=== PATIENT | female | born 2005 | race African-American/Black ===

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

== ENCOUNTER 2025-02-09 14:06 | Emergency (ER) | payer OTHER, SELFPAY ==
--- NOTE | 2025-02-09 14:07 | ED_ITS ---
HPI - URI/Sore Throat General Chief Complaint: Skin/Abscess/Foreign Body Stated Complaint: Sinus Time Seen by Provider: 02/09/25 14:06 Source: patient Mode of arrival: ambulatory Limitations: no limitations History of Present Illness HPI Narrative: Patient is a 19-year-old female who presents with 5 days of sinus congestion, cough, sore throat, ear pain, swollen lymph nodes, body aches and headaches. Denies any fever, chills, nausea, vomiting, diarrhea. Has not taken anything for symptoms. Patient also having more swelling to left labia for 2-3 months. Patient has not followed up with OBGYN. Patient states it is not painful and has not had any drainage Related Data Allergies Allergy/AdvReac Type Severity Reaction Status Date / Time No Known Allergies Allergy Verified 12/12/24 17:04 Review of Systems 2 Review of Systems: All systems reviewed & are unremarkable except as noted in HPI and below Constitutional: Constitutional: Denies chills, Denies fatigue, Denies fever(s), Reports headache(s), Denies malaise and Denies weakness Eyes: Eyes: Denies blurry vision, Denies itchy eyes and Denies loss of vision ENT: Reports otalgia, Denies headache(s), Reports nasal congestion, Denies sinus pain, Reports sinus pressure and Reports sore throat Cardiovascular: Cardiovascular: Denies chest pain, Denies irregular heart rhythm and Denies dyspnea Respiratory: Respiratory: Reports cough and Denies dyspnea Gastrointestinal: Gastrointestinal: Denies abdominal pain, Denies diarrhea, Denies nausea and Denies vomiting Genitourinary: Genitourinary: Reports other (labia swelling) Musculoskeletal: Musculoskeletal: Denies back pain, Reports myalgias and Denies arthralgias Integumentary/Breasts: Skin/Breast: Denies pruritus and Denies rash Neurologic: Denies headache(s), Denies loss of vision and Denies weakness Psychiatric: Psychiatric: Reports no additional psychiatric complaints Endocrine: Endocrine: Denies fatigue Allergic/Immunologic: Allergic/Immunologic: Denies itchy eyes PMFSH Comments At time of signature, agree with nursing past medical, surgical, social and family history. There is no relevant family history pertinent to the presenting complaint. Exam 2 Const: General: cooperative, healthy appearing, comfortable, no acute distress and well nourished Nutritional Appearance: well nourished O rientation/consciousness: patient oriented x3 Limitations: no limitations HENMT: Head: normal to inspection, normocephalic and atraumatic Ears: h earing grossly normal bilaterally, external ears normal, TM's normal bilaterally, EAC's normal and no periauricular adenopathy Face/Nose/Sinus: N ormal external nose present, Abnormal mucous membranes and turbinates present erythematous bilateral and diffuse, normal facial exam, sinuses nontender and face symmetric Face and sinus: normal facial exam, sinuses nontender and face symmetric Mouth: Yes Normal oral and palatal mucosa present, Yes lip normal, Yes tongue normal, Yes Normal salivary glands and ducts present, Yes oropharynx normal and Yes moist mucous membranes Teeth and gingiva: dentition normal Throat: uvula midline, abnormal tonsil bilateral erythema, exudates and hypertrophy 3+ and posterior oropharynx abnormal erythema Eyes: General: appearance normal, both eyes and all related structures A lignment and Position: alignment normal and position normal Periorbital: p eriorbital findings normal Eyelids: eyelids normal Pupils: Equal, round and reactive pupils present Neck: Neck: normal visual inspection, full ROM, no lymphadenopathy and supple Chest: Chest palpation & inspection: normal inspection of the chest and normal palpation of entire chest wall Resp: Effort & Inspection: normal respiratory effort and able to speak in complete sentences Auscultation: clear to auscultation bilaterally, no crackles, no rales, no rhonchi and no wheezes Cardio: Rate: regular rate Rhythm: regular rhythm Heart sounds: S1 normal heart sound present and S2 normal heart sound present GI: Inspection: normal to inspection : External Female Exam: external swelling (Left labia majora) OB/external & speculum: Deferred OB/external & speculum exam Female genitals images: 1. 2 cm fluid filled this cyst appearing mass. nontender, no erythema, warmth or drainage Skin: General skin exam: normal color and no rashes or lesions noted Neuro: General: patient oriented x3 and moves all extremities Cranial nerves: Yes Equal, round and reactive pupils present Speech: normal speech Gait exam (Neuro): Normal gait present Extrem: General: normal to inspection, full ROM and no edema Psych: Appearance: grossly normal and well kempt Mental Status: mental status grossly normal Speech and movement: Normal speech and movement present Affect: normal affect Attitude: cooperative Thought process: Normal thought process present Course Course Emergency Course: Discharge instructions reviewed with patient, as well as provided in writing per nursing staff. The instructions also include specific and strict return/GO TO THE ER as well as f/u information. All questions have been answered, and the patient deny any further questions with discharge and discharge plan. Portions of this record may have been created with voice recognition software Level of Care: Express Care Visit Vital Signs Vital signs: Reviewed MDM - URI/Sore Throat MDM Narrative Medical decision making narrative: Pt well hydrated appearing, in no respiratory distress, hemodynamically stable. Recommend supportive care. The patient is stable at time of discharge the clinical impression was discussed and the patient was given the opportunity to ask questions, which were addressed as completely as possible given the information available at present. Anticipatory guidance and return to care precautions were discussed and the importance of primary care follow-up was stressed and encouraged. The patient voiced understanding of the plan, indications to return, and the need for follow-up. Exam findings show no acute concerns or changes Patient is appropriate for outpatient treatment and follow-up. Differential diagnosis considered: Awan virus, strep pharyngitis, allergic rhinitis, upper respiratory tract infection, sinusitis, rhinosinusitis, nasopharyngitis. viral pharyngitis, otitis media, otitis externa, otitis effusion, foreign body, cerumen impaction, viral syndrome, and influenza.? Medical Records Attestation: I reviewed the patient's medical records. Lab Data Attestation: I reviewed the patient's lab results. Labs: Lab Results 02/09/25 02/09/25 02/09/25 Range/Units 14:19 14:20 15:00 POC Influenza A Ag Negative (Negative) POC Influenza B Ag Negative (Negative) POC SARS CoV-2 Ag Negative (Negative) POC Grp A Strep Screen Negative (Negative) Discharge Plan Discharge Clinical Impression: Upper respiratory infection, viral, Labial swelling Patient Disposition: Home Condition: Stable Instructions: Upper Respiratory Infection (ED) Additional Instructions: Your rapid strep swab was negative today at [facility]. A throat culture will be sent to the laboratory for further testing. If the test is positive, you will receive a phone call within 48 hours and an appropriate antibiotic will be initiated at that time. Your Covid and flu are both negative Your symptoms are likely due to a viral illness, which is not treated with antibiotics. Viral symptoms can be present for up to a few weeks. -For pain/fever, you may take: Tylenol 650-1000mg by mouth every 4-6 hours. Do not exceed 4000mg in 24 hours. Advil (Ibuprofen) 600 mg by mouth every 6 hours. Do not exceed 2400mg in 24 hours. 8 AM: Tylenol 11 AM: Ibuprofen 2 PM: Tylenol 5 PM: Ibuprofen 8 PM: Tylenol 11 PM: Ibuprofen 2 AM: Tylenol 5 AM: Ibuprofen -Antihistamine medication such as Benadryl/Zyrtec at night and Claritin/Kavita during the day can help improve symptoms. -Use Flonase twice a day for 5 days then daily to help reduce the inflammation and dry up your sinuses. -You can also use Sudafed behind the pharmacy counter(12 or 24 hour). Be sure to drink plenty of water with these medications at least 8 ounces with every dose and it is important to drink 8 to 10 glasses of water per day. Water is a natural decongestant -Eat and drink things that are easy to swallow, like tea or soup, or popsicles. -Oral rinses such as: Salt water gargles and/or may use topical anesthetic (eg. Chloraseptic spray) or lozenges to relieve dryness or throat pain). -Frequent hand washing or hand jacquard fixer is one of the best ways to prevent spread of infection. -Using a vaporizer or humidifier at night will also help thin secretions and help with coughing up phlegm. Call your Primary Care Doctor and make a follow-up appointment in 3 days. If your cough worsens, you develop a fever greater than 103, you develop shaking chills, a fast heartbeat, trouble breathing and/or feel you are are breathing much faster than usual, call your Primary Care Doctor or go to the ER. Patient Language: Bulgarian Prescriptions: New fluticasone propionate [Flonase Allergy Relief] 50 mcg/actuation spray,suspension 1 spray intranasal DAILY Qty: 16 0RF Rx Instructions: administer into each nostril loratadine 10 mg tablet 10 mg PO DAILY Qty: 30 0RF Follow-up/Referrals: Fili Ceballos MD [Physician, [employer]INO G[employer]ING INSPECTOR] - 3 Days Referral Note: Labial swelling Vernace,Luna M., DO [Physician, Family Practice] - 3 Days Referral Note: Establish care Stand Alone Forms: Work/School Release IP Time of Disposition: 15:22
[2025-02-09 14:38] LABS: EDINFLUASCREEN Negative (Negative); EDINFLUBSCREEN Negative (Negative)
[2025-02-09 14:39] LABS: EDCOVIDSCREEN Negative (Negative)
[2025-02-09 15:22] LABS: EDSTREPNEGPOS1 Negative (Negative)
== END 2025-02-09 15:30 | disposition home or self-care (01) ==
PROVIDERS: Emergency Provider Nurse Practitioner Family
DX: J06.9 Acute upper respiratory infection, unspecified (principal); N76.89 Other specified inflammation of vagina and vulva; Z20.822 Contact with and (suspected) exposure to COVID-19
CPT/HCPCS: 87081; 87426; 87804; 87880; 99213; G0463

== ENCOUNTER 2025-02-10 16:36 | Emergency (ER) | payer OTHER, SELFPAY ==
[2025-02-10 16:52] VITALS: BP 120/79; PULSE 88; RESP 18; TEMP 36.8; O2SAT 100
[2025-02-10 19:15] LABS: Strep Group A RT-PCR NOT DETECTED (Negative)
[2025-02-10 19:27] LABS: Influenza A QL RT-PCR Negative (Negative); Influenza B QL RT-PCR Negative (Negative); RSV RNA, RT-PCR Negative (Negative); SARS-CoV-2 RNA PCR Negative (Negative)
--- NOTE | 2025-02-10 19:43 | PC.NURSE ---
this rn at bedside with edp to assess barthalon cyst exam.
--- NOTE | 2025-02-10 20:40 | ED_ITS ---
HPI - General Adult General Chief complaint: Upper Respiratory Infection Stated complaint: swollen tonsils, L ear pain Time Seen by Provider: 02/10/25 18:10 History of Present Illness HPI narrative: This is a 19-year-old female presenting with sore throat. Patient says that gets pharyngitis every 2-3 months. She has had symptoms for several days. No difficulty swallowing or speaking. Patient was seen in urgent care yesterday and symptoms have not resolved. Patient also has a mass on her labia. It has been there for several months. It is nonpainful. She has not seen OBGYN yet. Related Data Allergies Allergy/AdvReac Type Severity Reaction Status Date / Time No Known Allergies Allergy Verified 12/12/24 17:04 Exam Narrative: APPEARANCE: No apparent distress. Head: Erythema of the tonsils without exudates. No uvular deviation. EYES: EOMI, NOSE: Atraumatic NECK: Trachea midline RESPIRATORY: No increased rate of breathing CARDIOVASCULAR: RRR, ABDOMINAL: Non-distended MUSCULOSKELETAl: No obvious deformities : Cyst on the left labia consistent with Bartholin's cyst NEURO: Alert. Moving 4/4 extremities SKIN:: Warm, dry. Normal color PSYCHIATRIC: Normal affect : Speculum Exam - Vagina: abnormal appearance of the vagina Course Vital Signs Vital signs: Vital Signs Temperature 98.3 F 02/10/25 16:52 Pulse Rate 88 02/10/25 16:52 Respiratory Rate 18 02/10/25 16:52 Blood Pressure 120/79 02/10/25 16:52 Pulse Oximetry 100 02/10/25 16:52 Oxygen Delivery Room Air 02/10/25 16:52 Temperature 98.3 F 02/10/25 16:52 Pulse Rate 88 02/10/25 16:52 Respiratory Rate 18 02/10/25 16:52 Blood Pressure 120/79 02/10/25 16:52 Pulse Oximetry 100 02/10/25 16:52 Oxygen Delivery Room Air 02/10/25 16:52 Medical Decision Making MDM Narrative Medical decision making narrative: -Course: 19-year-old female presenting sore throat x5 days. She is in urgent care yesterday and stools viral. She then came back to the ED today saying her symptoms are not improved. Patient would like antibiotics. Given sharp dexamethasone and discharged on amoxicillin. She also has a labial cyst. Likely a Bartholin's cyst. It is not infected. It is not bothering her. She will be discharged with OBGYN follow-up. Vital Signs Vital Signs: Vital Signs Temperature 98.3 F 02/10/25 16:52 Pulse Rate 88 02/10/25 16:52 Respiratory Rate 18 02/10/25 16:52 Blood Pressure 120/79 02/10/25 16:52 Pulse Oximetry 100 02/10/25 16:52 Oxygen Delivery Room Air 02/10/25 16:52 Temperature 98.3 F 02/10/25 16:52 Pulse Rate 88 02/10/25 16:52 Respiratory Rate 18 02/10/25 16:52 Blood Pressure 120/79 02/10/25 16:52 Pulse Oximetry 100 02/10/25 16:52 Oxygen Delivery Room Air 02/10/25 16:52 Lab Data Labs: Lab Results 02/10/25 Range/Units 18:40 Influenza A (RT-PCR) Negative (Negative) Influenza B (RT-PCR) Negative (Negative) RSV (RT-PCR) Negative (Negative) SARS-CoV-2 RNA (RT-PCR) Negative (Negative) Group A Strep (PCR) Not detected (Negative) Discharge Plan Discharge Clinical Impression: Acute tonsillitis, Bartholin cyst Patient Disposition: Home Condition: Stable Instructions: Antibiotic Form, Tonsillitis (ED), Bartholin Cyst (ED) Additional Instructions: You were seen in the emergency department for tonsillitis. Please complete the antibiotics as instructed. If you develop difficulty swallowing speaking or breathing please return to the ED for re-evaluation. Please follow-up with the OBGYN in regards to her own gland cyst. If it becomes painful return to the ED for re-evaluation. Patient Language: Albanian Prescriptions: New amoxicillin-pot clavulanate 875-125 mg tablet 1 tablet PO Q12H Qty: 20 0RF No Action fluticasone propionate [Flonase Allergy Relief] 50 mcg/actuation spray,suspension 1 spray intranasal DAILY Qty: 16 0RF Rx Instructions: administer into each nostril loratadine 10 mg tablet 10 mg PO DAILY Qty: 30 0RF Follow-up/Referrals: PHYSICIAN,SHAMPOO ASSISTANT [Primary Care Provider, Internal Medicine]
[2025-02-10] MEDS: dexAMETHasone SOD PHOS INJ 10 MG/ML 1 ML VIAL IM (21:02)
== END 2025-02-10 21:05 | disposition home or self-care (01) ==
PROVIDERS: Physician Assistant; Emergency Provider Emergency Medicine
DX: J03.90 Acute tonsillitis, unspecified (principal); N75.0 Cyst of Bartholin's gland; Z20.822 Contact with and (suspected) exposure to COVID-19
CPT/HCPCS: 87637; 87651; 96372; 99283; A9270; J1100

== ENCOUNTER 2025-02-13 09:49 | Observation (INO) | payer SELFPAY ==
--- NOTE | ~2025-02-13 | CT_ITS ---
EXAMINATION: CT soft tissue neck w con DATE: 02/13/2025 11:32 INDICATION: Left neck pain and swelling. TECHNIQUE: Computed tomography (CT) of the neck was performed with 75 mL Omnipaque-350 intravenous contrast. Automated exposure control and iterative reconstruction technique were employed. The dose-length product was 200.91 mGy-cm. COMPARISON: None FINDINGS: There is a mildly enlarged left high internal jugular chain lymph node, likely reactive. The left palatine tonsil is enlarged. There is hypodensity in left palatine tonsil measuring 1.7 x 1.4 cm, consistent with abscess. There is extensive mucosal thickening in right maxillary sinus. There is mild mucosal thickening in the right ethmoid sinuses. The mastoid air cells are normal. The orbits are normal. There is kyphosis of cervical spine. IMPRESSION: 1. 1.7 x 1.4 cm left peritonsillar abscess. 2. Mildly enlarged left high internal jugular chain lymph node, likely reactive. Reviewed, dictated and finalized at location E. IMPRESSION: 1. 1.7 x 1.4 cm left peritonsillar abscess. 2. Mildly enlarged left high internal jugular chain lymph node, likely reactive .
[2025-02-13 09:53] VITALS: BP 115/81; PULSE 90; RESP 18; TEMP 36.6; O2SAT 100
[2025-02-13 09:57] VITALS: O2SAT 100
[2025-02-13 10:39] LABS: Hematocrit 43.7 % (37.0-47.0); Hemoglobin 14.2 g/dL (12.0-15.0); Immature Granulocyte Percent A 0.5 % (0-0.5); Lymphocytes Absolute Auto 1.00 K/mm3 (0.9-3.2); Mean Corpuscular HGB Conc 32.5 g/dl (32-36); Mean Corpuscular Hemoglobin 28.4 pg (26-34); Mean Corpuscular Volume 87.4 fl (80-100); Nucleated Red Blood Cells Absolute Auto 0.000 K/mm3 (0.0-0.012); Nucleated Red Blood Cells Perc 0.0 % (0.0-0.2); Platelet Count Result 295 k/mm3 (150-375); Red Blood Count 5.00 M/mm3 (4.2-5.4); White Blood Count 8.5 K/mm3 (4.5-10.0)
[2025-02-13] MEDS: AMPICILLIN SODIUM/SULBACTAM 3 GM in SODIUM CHLORIDE 0.9% IV 100 ML 200 ML IVPB ×2 (10:40→17:27)
[2025-02-13] MEDS: dexAMETHasone SOD PHOS INJ 10 MG/ML 1 ML VIAL IV PUSH (10:40)
[2025-02-13 10:41] VITALS: BP 117/82; PULSE 89; RESP 16; O2SAT 100
[2025-02-13 10:46] LABS: Alanine Aminotransferase 16 U/L (6-35); Albumin Level 4.5 g/dL (3.7-5.6); Alkaline Phosphatase 80 U/L (45-116); Anion Gap 9 mmol/L (4-12); Aspartate Amino Transferase 26 U/L (14-36); Bilirubin,Total 0.7 mg/dL (0.2-1.3); Blood Urea Nitrogen 12 mg/dL (8-21); Calcium 9.6 mg/dL (8.9-10.7); Carbon Dioxide 26 mmol/L (22-30); Chloride 101 mmol/L (98-107); Estimated CRCL calculation 78 ml/min; Estimated Glomerular Filt Rate > 60; Glucose 91 mg/dL (65-110); Potassium 3.8 mmol/L (3.4-5.0); Sodium 136 mmol/L (134-143); Total Protein 9.3 g/dL (6.3-8.6)
--- NOTE | 2025-02-13 10:46 | ED_ITS ---
HPI - General Adult General Chief complaint: Unspecified Stated complaint: throat pain Time Seen by Provider: 02/13/25 10:01 History of Present Illness HPI narrative: Patient is a 19-year-old female who presents emergency department with chief complaint of sore throat and difficulty swallowing the patient reports she was seen in the emergency department on the 1st diagnosed with tonsillitis and started on Augmentin patient states that she is unable to swallow the pill and reports that she has pain with swallowing patient states that the left side of her throat is started swelling more and reports that she has a fullness in her left ear Related Data Allergies Allergy/AdvReac Type Severity Reaction Status Date / Time No Known Allergies Allergy Verified 02/13/25 16:16 Review of Systems 2 Review of Systems: A 10 system review of systems was completed on the patient and is negative except for what is stated in the HPI. Nursing and ancillary documentation was reviewed. [facility] Past Medical History Medical History (Updated 02/13/25 @ 14:54 by Alia Gurrola APRN) Tonsil, abscess (02/13/25) Social History Social History Smoking status: Never smoker Alcohol intake: never Substance use: current Substance use type: marijuana Lack of Transportation: No Lack of Food: Never True Current Housing: I Have Housing Concerned About Future Housing: No Difficulty Paying Gas/Electric Bills: No Difficulty Paying for Meds: No Currently Unemployed: No Education: High School Diploma/GED Difficulty w/ Childcare or Family Care: No Spiritual care concerns: No Exam 2 Narrative: GENERAL: Well-appearing, well-nourished, and in no acute distress. HEAD: Normocephalic, atraumatic. EYES: PERRLA and EOMI. ENT: Nares clear, no rhinorrhea or epistaxis. Mucous membranes moist. There is erythema and swelling of the left posterior oropharynx somewhat muffled voice NECK: Supple. CHEST: Clear to auscultation. No respiratory distress. HEART: Regular rate and rhythm. No murmur heard. Normal peripheral pulses. ABDOMEN: Soft, nontender, nondistended, normal active bowel sounds. EXTREMITIES: Normal range of motion. No edema. SKIN: Warm, dry, no rash. NEURO: No focal deficits. Alert and oriented x3. PSYCH: Normal mood and affect. Course Vital Signs Vital signs: Vital Signs Temperature 36.6 C 02/13/25 09:53 Pulse Rate 90 02/13/25 09:53 Respiratory Rate 18 02/13/25 09:53 Blood Pressure 115/81 02/13/25 09:53 Pulse Oximetry 100 02/13/25 09:53 Oxygen Delivery Room Air 02/13/25 09:53 Temperature 36.6 C 02/13/25 13:54 Pulse Rate 68 02/13/25 13:54 Respiratory Rate 18 02/13/25 13:54 Blood Pressure 125/80 02/13/25 13:54 Pulse Oximetry 98 02/13/25 13:54 Oxygen Delivery Room Air 02/13/25 09:53 Medical Decision Making MDM Narrative Medical decision making narrative: Differential diagnosis includes tonsillar abscess, peritonsillar abscess Laboratory studies showed normal white blood cell count CT scan showed evidence of a possible peritonsillar abscess versus tonsillar abscess ENT was consult the patient was seen by ENT in the emergency department and a needle aspiration was performed where mL purulent material was by ENT they recommended admission for IV antibiotics and no steroids at this time ENT will follow and recommend repeat CT scan and may need operative intervention if symptoms do not improve Vital Signs Vital Signs: Vital Signs Temperature 36.6 C 02/13/25 09:53 Pulse Rate 90 02/13/25 09:53 Respiratory Rate 18 02/13/25 09:53 Blood Pressure 115/81 02/13/25 09:53 Pulse Oximetry 100 02/13/25 09:53 Oxygen Delivery Room Air 02/13/25 09:53 Temperature 36.6 C 02/13/25 13:54 Pulse Rate 68 02/13/25 13:54 Respiratory Rate 18 02/13/25 13:54 Blood Pressure 125/80 02/13/25 13:54 Pulse Oximetry 98 02/13/25 13:54 Oxygen Delivery Room Air 02/13/25 09:53 Lab Data 02/13/25 10:27 02/13/25 10:27 Labs: Lab Results 02/13/25 02/13/25 02/13/25 Range/Units 10:24 10:27 11:14 WBC 8.5 (4.5-10.0) K/mm3 RBC 5.00 (4.2-5.4) M/mm3 Hgb 14.2 (12.0-15.0) g/dL Hct 43.7 (37.0-47.0) % MCV 87.4 (80-100) fl MCH 28.4 (26-34) pg MCHC 32.5 (32-36) g/dl RDW 13.5 (11.5-14.5) % Plt Count 295 (150-375) k/mm3 MPV 10.5 H (7.4-10.4) fl Immature Gran % (Auto) 0.5 (0-0.5) % Neut % (Auto) 75.5 H (45.5-73.1) % Lymph % (Auto) 11.8 L (18.3-44.2) % Towns % (Auto) 11.0 H (2.6-8.5) % Eos % (Auto) 0.6 (0-4.4) % Baso % (Auto) 0.6 (0.2-1.2) % Lymph # (Auto) 1.00 (0.9-3.2) K/mm3 Towns # (Auto) 0.9 H (0.1-0.6) K/mm3 Eos # (Auto) 0.1 (0-0.3) K/mm3 Baso # (Auto) 0.1 (0.0-0.1) K/mm3 Abs Immat Gran (auto) 0.04 H (0.00-0.031) K/mm3 Absolute Neuts (auto) 6.4 (1.3-6.7) K/mm3 Absolute Nucleated RBC 0.000 (0.0-0.012) K/mm3 Nucleated RBC % 0.0 (0.0-0.2) % Sodium 136 (134-143) mmol/L Potassium 3.8 (3.4-5.0) mmol/L Chloride 101 (98-107) mmol/L Carbon Dioxide 26 (22-30) mmol/L Anion Gap 9 (4-12) mmol/L BUN 12 (8-21) mg/dL Creatinine 0.76 (0.7-1.0) mg/dL Estim Creat Clear Calc 78 ml/min Estimated GFR > 60 (59 - ) Glucose 91 (65-110) mg/dL Lactic Acid 0.9 (0.7-2.0) mmol/L Calcium 9.6 (8.9-10.7) mg/dL Total Bilirubin 0.7 (0.2-1.3) mg/dL AST 26 (14-36) U/L ALT 16 (6-35) U/L Alkaline Phosphatase 80 (45-116) U/L Total Protein 9.3 H (6.3-8.6) g/dL Albumin 4.5 (3.7-5.6) g/dL POC Urine HCG, Qual Negative (Negative) Monoscreen Negative (Negative) Influenza A (RT-PCR) Negative (Negative) Influenza B (RT-PCR) Negative (Negative) RSV (RT-PCR) Negative (Negative) SARS-CoV-2 RNA (RT-PCR) Negative (Negative) Group A Strep (PCR) Not detected (Negative) Discharge Plan Discharge Clinical Impression: Tonsil, abscess Patient Disposition: Still a Patient Condition: Stable
[2025-02-13 10:59] LABS: Strep Group A RT-PCR NOT DETECTED (Negative)
[2025-02-13 11:12] LABS: Influenza A QL RT-PCR Negative (Negative); Influenza B QL RT-PCR Negative (Negative); RSV RNA, RT-PCR Negative (Negative); SARS-CoV-2 RNA PCR Negative (Negative)
[2025-02-13 11:15] LABS: BEDSIDEPREGUCG Negative (Negative)
[2025-02-13 11:39] LABS: Negative Monotest Control Negative (Negative); Positive Monotest Control Positive (Positive)
[2025-02-13 13:54] VITALS: BP 125/80; PULSE 68; RESP 18; TEMP 36.6; O2SAT 98
--- NOTE | 2025-02-13 14:01 | WPDCN ---
Assessment and Plan Assessment and plan (1) Tonsil, abscess: Onset Date: 02/13/25 Code(s): J36 - Peritonsillar abscess Status: Acute Plan 19-year-old female with chronic tonsillitis hypertrophy of tonsils, and left tonsillar abscess CT neck soft tissue wit contrast 02/13/2025 IMPRESSION: 1. 1.7 x 1.4 cm left peritonsillar abscess. 2. Mildly enlarged left high internal jugular chain lymph node, likely reactive. Fine-needle aspiration was done under local anesthesia : Patient was given viscous lidocaine was advised to gargle keep it of the back of the mouth for 1 minute then to swallow it, which may point good topical anesthesia Procedure: Fine-needle aspiration using 18 gauge needle which was inserted in the lower aspect of the left tonsil, I was able to pull 1 cc of puss which was sent for culture and sensitivity Plan: 1. Admit in Medicine. 2. IV antibiotics. No need for steroids as they will mask the infection 3. NPO for 2 days then if improved can do regular diet. 4. Pain management. 5. If there is improvement in the patient condition including throat pain and improvement in the difficulty swallowing then patient can go home with oral antibiotic for 10 days. 6. If no improvement within 48 hours of starting the IV antibiotics then repeat CT neck with contrast inform with the results 7. If patient improves and gets discharged she will need to have a follow-up appointment in the ENT clinic with in 1 month to schedule tonsillectomy HPI Data of Consult Date/Time: 02/13/25 14:01 Primary Care Provider: [facility] Consult Narrative Narrative: Mp Ochoa is a 19-year-old female who presents emergency department with chief complaint of sore throat and difficulty swallowing the patient reports she was seen in the emergency department on the 1st diagnosed with tonsillitis and started on Augmentin patient states that she is unable to swallow the pill and reports that she has pain with swallowing patient states that the left side of her throat is started swelling more and reports that she has a fullness in her left ear Review of Systems Review of Systems: All systems reviewed & are unremarkable except as noted in HPI and below Constitutional: Constitutional: Reports as per HPI ENT: Reports as per HPI Respiratory: Respiratory: Reports as per HPI Gastrointestinal: Gastrointestinal: Reports as per HPI PMFSH Past Medical History Medical History (Updated 02/13/25 @ 14:54 by Alia Gurrola, RN [facility]) Tonsil, abscess (02/13/25) Meds Home Medications and Allergies Home Medications ?Medication ?Instructions ?Recorded ?Confirmed ?Type fluticasone propionate 50 1 spray intranasal DAILY #16 grams 02/09/25 Rx mcg/actuation nasal spray,suspension (Flonase Allergy Relief) loratadine 10 mg tablet 10 mg PO DAILY #30 tabs 02/09/25 Rx amoxicillin 875 mg-potassium 1 tablet PO Q12H #20 tabs 02/10/25 Rx clavulanate 125 mg tablet Allergies Allergy/AdvReac Type Severity Reaction Status Date / Time No Known Allergies Allergy Verified 02/13/25 09:57 Vital Signs Vital Signs - 24 hr 02/13/25 09:53 02/13/25 09:57 02/13/25 10:41 Temperature 36.6 C Pulse Rate 90 89 Respiratory Rate 18 16 Blood Pressure 115/81 117/82 Pulse Oximetry 100 100 100 Oxygen Delivery Room Air 02/13/25 13:54 Temperature 36.6 C Pulse Rate 68 Respiratory Rate 18 Blood Pressure 125/80 Pulse Oximetry 98 Oxygen Delivery Exam Const: General: cooperative, healthy appearing, comfortable, no acute distress, well developed, alert, awake and Physically active Orientation/consciousness: oriented to person, oriented to place, oriented to time and patient oriented x3 HENMT: Head: normocephalic and atraumatic Ears: external ears normal and EAC's normal Face/Nose/Sinus: Normal external nose present and Normal nares present Mouth: Yes Normal oral and palatal mucosa present, Yes lip normal and Yes tongue normal Other: Bilateral enlarged tonsils I do not see any soft palate swelling or deviation of the uvula Eyes: General: appearance normal, both eyes and all related structures Neck: Neck: normal visual inspection, full ROM and trachea midline Resp: Effort & Inspection: normal respiratory effort and able to speak in complete sentences Cardio: Rate: regular rate Neuro: General: oriented to person, oriented to place, oriented to time and patient oriented x3 Results Labs 02/13/25 10:27 02/13/25 10:27 Labs: Short CBC 02/13/25 Range/Units 10: WBC 8.5 (4.5-10.0) K/mm3 Hgb 14.2 (12.0-15.0) g/dL Hct 43.7 (37.0-47.0) % Plt Count 295 (150-375) k/mm3 BMP 02/13/25 10:27 Sodium 136 Potassium 3.8 Chloride 101 Carbon Dioxide 26 BUN 12 Creatinine 0.76 Glucose 91 Calcium 9.6 Liver Function 02/13/25 Range/Units 10:27 Total Bilirubin 0.7 (0.2-1.3) mg/dL AST 26 (14-36) U/L ALT 16 (6-35) U/L Alkaline Phosphatase 80 (45-116) U/L Albumin 4.5 (3.7-5.6) g/dL
[2025-02-13] MEDS: LIDOCAINE 2% VISC SOLN 15 ML UDC (14:09)
--- NOTE | 2025-02-13 14:46 | PM.IMHP ---
H&P: HPI History of Present Illness Date/Time: 02/13/25 14:46 Chief Complaint: Difficulty Swallowing Narrative: 19 y/o F with no significant PMH presents here with difficulty swallowing and sore throat. The patient presents here on 02/13 for re-evaluation of sore throat and difficulty swallowing. She originally presented to [facility] on 02/10 for sore throat. At that time she reported she gets pharyngitis every 2-3 months, however had had symptoms for several days. At that time she denied difficulty swallowing or speaking. At that time she was given a 1 time dose of dexamethasone and discharged home on Augmentin. She has only able to take 3 doses due to the size and pain. Now returning today with continued sore throat, now experiencing difficulty swallowing. She reports the swelling has worsened on the left side and now has a fullness in her left ear as well. Denies fever, chills, body aches, nausea, vomiting, diarrhea, or shortness of breath. Initial VS at presentation: 97.8? F, HR 90, RR 18, 115/81, and 100% on RA. ED workup showed: No leukocytosis, no anemia, no significant electrolyte derangements, creatinine 0.76 and GFR >60, hCG negative, mono screen negative, viral PCR negative, group a strep negative. Soft tissue neck CT showed a 1.7 x 1.4 cm left peritonsillar abscess, mildly enlarged left and high internal jugular chain lymph node likely reactive. Review of Systems Review of Systems: All systems reviewed & are unremarkable except as noted in HPI and below PMFSH Past Medical History Medical History (Updated 02/13/25 @ 14:54 by Alia Gurrola APRN) Tonsil, abscess (02/13/25) Social History Social History Smoking status: Never smoker Alcohol intake: never Substance use: current Substance use type: marijuana Lack of Transportation: No Lack of Food: Never True Current Housing: I Have Housing Concerned About Future Housing: No Difficulty Paying Gas/Electric Bills: No Difficulty Paying for Meds: No Currently Unemployed: No Education: High School Diploma/GED Difficulty w/ Childcare or Family Care: No Spiritual care concerns: No Meds Home Medications and Allergies Home Medications ?Medication ?Instructions ?Recorded ?Confirmed ?Type amoxicillin 875 mg-potassium 1 tablet PO Q12H #20 tabs 02/10/25 02/13/25 Rx clavulanate 125 mg tablet Allergies Allergy/AdvReac Type Severity Reaction Status Date / Time No Known Allergies Allergy Verified 02/13/25 16:16 Vital Signs Vital Signs - 24 hr 02/13/25 09:53 02/13/25 09:57 02/13/25 10:41 Temperature 97.8 F Pulse Rate 90 89 Respiratory Rate 18 16 Blood Pressure 115/81 117/82 Pulse Oximetry 100 100 100 Oxygen Delivery Room Air 02/13/25 13:54 Temperature 97.9 F Pulse Rate 68 Respiratory Rate 18 Blood Pressure 125/80 Pulse Oximetry 98 Oxygen Delivery Exam Const: General: comfortable and no acute distress Other: , female, young adult, nontoxic appearance HENMT: Face/Nose/Sinus: Normal nares present Mouth: Yes moist mucous membranes Other: Mild erythema to tonsillar pillars, enlarged tonsils bilaterally, no uvula deviation. No muffled voice. Eyes: General: appearance normal, both eyes and all related structures Sclera: sclerae normal Pupils: Equal, round and reactive pupils present EOM: EOMs intact bilaterally Neck: Other: No lymphadenopathy appreciated Resp: Effort & Inspection: normal respiratory effort Auscultation: clear to auscultation bilaterally Cardio: Rate: regular rate Rhythm: regular rhythm Other: S1-S2 present without murmur, rub, ectopy GI: Other: Abdomen soft, nondistended, nontender. Normoactive bowel sounds in all quadrants. Skin: General skin exam: normal color and no rashes or lesions noted Wounds: no wounds Neuro: Speech: normal speech Motor exam (neuro): 5/5 motor strength present throughout Sensory Exam: normal sensation Other: A&O x4 Extrem: General: normal to inspection Psych: Mental Status: mental status grossly normal Affect: normal affect Other: Good insight and judgment, pleasant H&P: Results Labs Labs: Short CBC 02/13/25 Range/Units 10:27 WBC 8.5 (4.5-10.0) K/mm3 Hgb 14.2 (12.0-15.0) g/dL Hct 43.7 (37.0-47.0) % Plt Count 295 (150-375) k/mm3 [facility] 02/13/25 10:27 Sodium 136 Potassium 3.8 Chloride 101 Carbon Dioxide 26 BUN 12 Creatinine 0.76 Glucose 91 Calcium 9.6 Liver Function 02/13/25 Range/Units 10:27 Total Bilirubin 0.7 (0.2-1.3) mg/dL AST 26 (14-36) U/L ALT 16 (6-35) U/L Alkaline Phosphatase 80 (45-116) U/L Albumin 4.5 (3.7-5.6) g/dL Assessment and Plan Assessment and plan (1) Tonsil, abscess: Onset Date: 02/13/25 Code(s): J36 - Peritonsillar abscess Status: Acute Assessment and Plan: Patient originally seen on 02/10 to at [facility], diagnosed with acute tonsillitis and discharged home on Augmentin. Returned to on 08/12/2009 with continued sore throat and newly developed difficulty swallowing/worsening left-sided no swelling with associated ear fullness. CT concerning for 1.7 x 1.4 cm left peritonsillar abscess and mildly enlarged left high internal jugular chain lymph node, likely reactive. ENT was consulted, Rosalie GONZALEZ, who saw the patient in the ED. specialist was able to I&D the abscess able to withdrawal 1 mL of purulent drainage - sent for culture. Recommended starting the patient on Unasyn and did not recommend continuing steroids. The patient reports improvement in her symptoms since the I&D - Unasyn started on 02/13, requesting liquid abx at d/c for ease of taking - I&D on 02/13, done by ENT, culture sent - blood cultures obtained in ED on 02/13, follow - no further steroids - analgesics p.r.n. - clear liquid diet - IV fluids: 125 mL/hour x1 L - monitor WBC and airway Plan Diet: Clear liquid GI Prophylaxis: n/a DVT Prophylaxis: Low risk IV fluids: 125 mL/hour x1 L Lines/Tubes: Peripheral IV Code Status: Full code Quality If No VTE Prophylaxis Answer both mechanical and pharmacologic: Reason no mechanical VTE proph: low risk/not indicated Reason no pharmacologic proph: low risk/not indicated Hospitalist MIPS Advance Care Plan I have confirmed that the patient's Advanced Care Plan is present, code status is documented, or surrogate decision maker is listed in patient medical record.: Yes Medication Reconciliation I have utilized all available resources to obtain, update and review the patients current medications (includes all prescriptions, OTC, herbals, cannabis, and nutritional supplements).: Yes
--- NOTE | 2025-02-13 15:48 | PC.NURSE ---
This patient, Mp Ochoa, was admitted to 3 Med Surg Room [id number]. Patient/family oriented to hospital policies and general routines including ID bracelet, bed and alarms, visiting hours, pain management, procedures, bathroom and other care routines, personal items, smoking policy, room service/diet, and visiting hours. Information on how to activate the Rapid Response Team has been discussed. Patient/Family are encouraged to report perceived risks to care and to ask questions if they do not understand what they are told or what they should do.
[2025-02-13 16:15] VITALS: BMI 19.2
[2025-02-13] MEDS: DEXTROSE 5%/LACTATED RINGERS 1,000 ML 75 ML IV CONT (17:27)
[2025-02-13 20:00] VITALS: PULSE 69; RESP 14; O2SAT 100
[2025-02-13 22:00] VITALS: BP 110/72; PULSE 69; RESP 14; TEMP 36.7; O2SAT 100
[2025-02-14] MEDS: AMPICILLIN SODIUM/SULBACTAM 3 GM in SODIUM CHLORIDE 0.9% IV 100 ML 200 ML IVPB ×5 (00:13→23:47)
[2025-02-14 06:00] VITALS: BP 119/72; PULSE 67; RESP 14; TEMP 36.8; O2SAT 100
[2025-02-14 06:35] LABS: Hematocrit 39.7 % (37.0-47.0); Hemoglobin 13.2 g/dL (12.0-15.0); Immature Granulocyte Percent A 0.5 % (0-0.5); Lymphocytes Absolute Auto 0.97 K/mm3 (0.9-3.2); Mean Corpuscular HGB Conc 33.2 g/dl (32-36); Mean Corpuscular Hemoglobin 28.8 pg (26-34); Mean Corpuscular Volume 86.5 fl (80-100); Nucleated Red Blood Cells Absolute Auto 0.000 K/mm3 (0.0-0.012); Nucleated Red Blood Cells Perc 0.0 % (0.0-0.2); Platelet Count Result 292 k/mm3 (150-375); Red Blood Count 4.59 M/mm3 (4.2-5.4); White Blood Count 8.3 K/mm3 (4.5-10.0)
[2025-02-14 07:00] LABS: Alanine Aminotransferase 16 U/L (6-35); Albumin Level 3.9 g/dL (3.7-5.6); Alkaline Phosphatase 73 U/L (45-116); Anion Gap 8 mmol/L (4-12); Aspartate Amino Transferase 25 U/L (14-36); Bilirubin,Total 0.5 mg/dL (0.2-1.3); Blood Urea Nitrogen 12 mg/dL (8-21); Calcium 9.3 mg/dL (8.9-10.7); Carbon Dioxide 25 mmol/L (22-30); Chloride 101 mmol/L (98-107); Estimated CRCL calculation 90 ml/min; Estimated Glomerular Filt Rate > 60; Glucose 114 mg/dL (65-110); Potassium 4.3 mmol/L (3.4-5.0); Sodium 134 mmol/L (134-143); Total Protein 8.0 g/dL (6.3-8.6)
[2025-02-14] MEDS: DEXTROSE 5%/LACTATED RINGERS 1,000 ML 75 ML IV CONT ×2 (07:06→21:20)
--- NOTE | 2025-02-14 10:55 | P.PNIM_ITS ---
Progress Note: A&P Assessment and Plan (1) Tonsil, abscess: Onset Date: 02/13/25 Code(s): J36 - Peritonsillar abscess Status: Acute Assessment and Plan: Patient originally seen on 02/10 to at [facility], diagnosed with acute tonsillitis and discharged home on Augmentin. Returned to on 08/12/2009 with continued sore throat and newly developed difficulty swallowing/worsening left- sided no swelling with associated ear fullness. CT concerning for 1.7 x 1.4 cm left peritonsillar abscess and mildly enlarged left high internal jugular chain lymph node, likely reactive. ENT was consulted, Rosalie GONZALEZ, who saw the patient in the ED. specialist was able to I&D the abscess able to withdrawal 1 mL of purulent drainage - sent for culture. Recommended starting the patient on Unasyn and did not recommend continuing steroids. The patient reports improvement in her symptoms since the I&D - Unasyn started on 02/13, requesting liquid abx at d/c for ease of taking - I&D on 02/13, done by ENT, culture sent - blood cultures obtained in ED on 02/13, follow - no further steroids - analgesics p.r.n. - maintenance IV fluids - NPO x 48 hours, then can start regular diet if continues to improve - monitor WBC and airway Plan Code Status: Full code Dispo: home tomorrow if continues to improve Subjective Date/time seen: 02/14/25 10:55 Interval history: Patient seen and examined at bedside. Feeling much better this AM. Tolerating secretions. Agreeable to staying for monitoring one more night. Review of Systems Review of Systems: All systems reviewed & are unremarkable except as noted in HPI and below Exam Narrative: General: NAD Eyes: EOMI ENT: neck supple. Bilateral tonsillar hypertrophy, no unilateral edema. Maintaining secretions. Cardiovascular: Regular rate and rhythm Respiratory: Clear to auscultation, respirations even and unlabored on RA Gastrointestinal: Soft, non tender Genitourinary: no suprapubic tenderness Musculoskeletal: No edema Skin: warm, dry Neuro: Alert. Psych: Mood appropriate Objective Data Vital Signs Vital Signs: Vital Signs - 24 hr 02/13/25 13:54 02/13/25 20:00 02/13/25 22:00 Temperature 97.9 F 98.1 F Pulse Rate 68 69 69 Respiratory Rate 18 14 14 Blood Pressure 125/80 110/72 Pulse Oximetry 98 100 100 Oxygen Delivery Room Air 02/14/25 06:00 02/14/25 08:00 Temperature 98.2 F Pulse Rate 67 Respiratory Rate 14 Blood Pressure 119/72 Pulse Oximetry 100 Oxygen Delivery Room Air Intake/Output Intake/Output: Intake & Output 02/11/25 02/12/25 02/13/25 02/14/25 23:59 23:59 23:59 23:59 Intake Total 200 1440 Balance 200 1440 Meds/Results Medications: Active Medications Generic Name Dose Route Start Last Admin Trade Name Freq PRN Reason Stop Dose Admin Acetaminophen 650 mg 02/13/25 14:37 Acetaminophen 325 Mg Tablet PO Q4H PRN Mild Pain (1-3) or Fever Hydrocodone Bitart/Acetaminophen 1 tab 02/13/25 14:59 Hydrocodone/Acetaminophen (*Crx) 5-325 Mg Tablet PO Q6H PRN Pain Rated 4-6 Dextrose 12.5 gm 02/13/25 17:12 Dextrose 50% 25 Gm/50 Ml Syringe IV PUSH PRN PRN Hypoglycemia Protocol Glucagon 1 mg 02/13/25 17:12 Glucagon For Inj 1 Mg Vial IM PRN PRN Hypoglycemia Protocol Glucose 15 gm 02/13/25 17:12 Glucose Oral Gel 15 Gm Of Glucse In 37.5 Gm Tube PO PRN PRN Hypoglycemia Protocol Ampicillin Sodium/Sulbactam 100 mls @ 200 mls/hr 02/13/25 18:00 02/14/25 06:55 Sodium 3 gm/ Sodium Chloride IVPB Infused Q6HR ELIEL Infusion Dextrose/Lactated Ringer's 1,000 mls @ 75 mls/hr 02/13/25 17:15 02/14/25 07:06 Dextrose 5%/Lactated Ringers IV CONT 75 mls/hr .[id number] ELIEL Administration Dextrose 1,000 mls @ 100 mls/hr 02/13/25 17:12 Dextrose 5% 1,000 Ml IVPB PRN PRN Hypoglycemia Protocol Morphine Sulfate 2 mg 02/13/25 14:44 Morphine Sulfate (*Crx) 4 Mg/Ml Inj IV PUSH Q2H PRN Pain Rated 7-10 Ondansetron HCl 4 mg 02/13/25 14:37 Ondansetron Inj 4 Mg/2 Ml Vial IV PUSH Q4H PRN Nausea Radiology Results: ITS Impressions Soft Tissue Neck CT 02/13/25 12:07 IMPRESSION: 1. 1.7 x 1.4 cm left peritonsillar abscess. 2. Mildly enlarged left high internal jugular chain lymph node, likely reactive. Labs Labs: Laboratory Results - last 24 hr 02/13/25 02/13/25 02/13/25 10:24 10:27 11:14 WBC RBC Hgb Hct MCV MCH MCHC RDW Plt Count MPV Immature Gran % (Auto) Neut % (Auto) Lymph % (Auto) [place] % (Auto) Eos % (Auto) Baso % (Auto) Lymph # (Auto) [place] # (Auto) Eos # (Auto) Baso # (Auto) Abs Immat Gran (auto) Absolute Neuts (auto) Absolute Nucleated RBC Nucleated RBC % Sodium Potassium Chloride Carbon Dioxide Anion Gap BUN Creatinine Estim Creat Clear Calc Estimated GFR Glucose POC Capillary Glucose Calcium Total Bilirubin AST ALT Alkaline Phosphatase Total Protein Albumin POC Urine HCG, Qual Negative Monoscreen Negative Influenza A (RT-PCR) Negative Influenza B (RT-PCR) Negative RSV (RT-PCR) Negative SARS-CoV-2 RNA (RT-PCR) Negative Group A Strep (PCR) Not detected 02/13/25 02/14/25 02/14/25 21:02 00:21 06:07 WBC 8.3 RBC 4.59 Hgb 13.2 Hct 39.7 MCV 86.5 MCH 28.8 MCHC 33.2 RDW 13.2 Plt Count 292 MPV 10.8 H Immature Gran % (Auto) 0.5 Neut % (Auto) 77.6 H Lymph % (Auto) 11.7 L [place] % (Auto) 10.1 H Eos % (Auto) 0.0 Baso % (Auto) 0.1 L Lymph # (Auto) 0.97 [place] # (Auto) 0.8 H Eos # (Auto) 0.0 Baso # (Auto) 0.0 Abs Immat Gran (auto) 0.04 H Absolute Neuts (auto) 6.4 Absolute Nucleated RBC 0.000 Nucleated RBC % 0.0 Sodium 134 Potassium 4.3 Chloride 101 Carbon Dioxide 25 Anion Gap 8 BUN 12 Creatinine 0.67 L Estim Creat Clear Calc 90 Estimated GFR > 60 Glucose 114 H POC Capillary Glucose 115 H 117 H Calcium 9.3 Total Bilirubin 0.5 AST 25 ALT 16 Alkaline Phosphatase 73 Total Protein 8.0 Albumin 3.9 POC Urine HCG, Qual Monoscreen Influenza A (RT-PCR) Influenza B (RT-PCR) RSV (RT-PCR) SARS-CoV-2 RNA (RT-PCR) Group A Strep (PCR) 02/14/25 06:09 WBC RBC Hgb Hct MCV MCH MCHC RDW Plt Count MPV Immature Gran % (Auto) Neut % (Auto) Lymph % (Auto) [place] % (Auto) Eos % (Auto) Baso % (Auto) Lymph # (Auto) [place] # (Auto) Eos # (Auto) Baso # (Auto) Abs Immat Gran (auto) Absolute Neuts (auto) Absolute Nucleated RBC Nucleated RBC % Sodium Potassium Chloride Carbon Dioxide Anion Gap BUN Creatinine Estim Creat Clear Calc Estimated GFR Glucose POC Capillary Glucose 118 H Calcium Total Bilirubin AST ALT Alkaline Phosphatase Total Protein Albumin POC Urine HCG, Qual Monoscreen Influenza A (RT-PCR) Influenza B (RT-PCR) RSV (RT-PCR) SARS-CoV-2 RNA (RT-PCR) Group A Strep (PCR)
[2025-02-14 14:00] VITALS: BP 126/87; PULSE 61; RESP 18; TEMP 36.3; O2SAT 100
[2025-02-14 22:00] VITALS: BP 100/66; PULSE 56; RESP 19; TEMP 36.1; O2SAT 100
[2025-02-15] MEDS: AMPICILLIN SODIUM/SULBACTAM 3 GM in SODIUM CHLORIDE 0.9% IV 100 ML 200 ML IVPB (05:27)
[2025-02-15 06:00] VITALS: BP 110/65; PULSE 57; RESP 16; TEMP 36.4; O2SAT 100
[2025-02-15 06:08] LABS: Hematocrit 38.0 % (37.0-47.0); Hemoglobin 12.3 g/dL (12.0-15.0); Immature Granulocyte Percent A 0.2 % (0-0.5); Lymphocytes Absolute Auto 2.09 K/mm3 (0.9-3.2); Mean Corpuscular HGB Conc 32.4 g/dl (32-36); Mean Corpuscular Hemoglobin 28.5 pg (26-34); Mean Corpuscular Volume 88.2 fl (80-100); Nucleated Red Blood Cells Absolute Auto 0.000 K/mm3 (0.0-0.012); Nucleated Red Blood Cells Perc 0.0 % (0.0-0.2); Platelet Count Result 256 k/mm3 (150-375); Red Blood Count 4.31 M/mm3 (4.2-5.4); White Blood Count 5.1 K/mm3 (4.5-10.0)
[2025-02-15 14:00] VITALS: BP 126/81; PULSE 73; RESP 18; TEMP 36.9; O2SAT 99
--- NOTE | 2025-02-15 14:41 | P.DS_ITS ---
DS: Admitting Diagnosis Discharge Date 02/15/25 Admitting Diagnosis -peritonsillar abscess DS: Discharge Diagnosis Discharge Diagnosis (1) Tonsil, abscess: Onset Date: 02/13/25 Code(s): J36 - Peritonsillar abscess Status: Acute DS: Summary Hospital Course Reason for hospitalization: - peritonsillar abscess Hospital Course: 19 y/o F with no significant PMH presents here with difficulty swallowing and sore throat. Initial VS at presentation: 97.8? F, HR 90, RR 18, 115/81, and 100% on RA. ED workup showed: No leukocytosis, no anemia, no significant electrolyte derangements, creatinine 0.76 and GFR >60, hCG negative, mono screen negative, viral PCR negative, group a strep negative. Soft tissue neck CT showed a 1.7 x 1.4 cm left peritonsillar abscess, mildly enlarged left and high internal jugular chain lymph node likely reactive. In ED, ENT was consulted and patient subsequently underwent bedside I&D of peritonsillar abscess 02/13. ENT recommended admission for IV antibiotics, NPO x48 hours. Patient had significant improvement in her symptoms and remained afebrile with no leukocytosis. Patient was started on a regular diet and tolerated well. ENT recommended discharge with outpatient follow-up in 4 weeks to discuss tonsillectomy. She was discharged with Augmentin x 10 days per ENT recs. Will follow cultures obtained in ED. Patient was discharged home in stable condition. Status at Discharge Functional status at discharge: independent ambulation Time Spent with Patient Time attestation: Total time spent providing and/or coordinating discharge services: Time spent: Greater than 30 minutes Exam Narrative: General: NAD Eyes: EOMI ENT: neck supple. Bilateral tonsillar hypertrophy, no unilateral edema. Maintaining secretions. Cardiovascular: Regular rate and rhythm Respiratory: Clear to auscultation, respirations even and unlabored on RA Gastrointestinal: Soft, non tender Genitourinary: no suprapubic tenderness Musculoskeletal: No edema Skin: warm, dry Neuro: Alert. Psych: Mood appropriate DS: Data Data Completed and Pending Completed studies during hospitalization: ITS Impressions Soft Tissue Neck CT 02/13/25 12:07 IMPRESSION: 1. 1.7 x 1.4 cm left peritonsillar abscess. 2. Mildly enlarged left high internal jugular chain lymph node, likely reactive. Pending studies at discharge: - blood cultures - I&D culture Labs on day of discharge: Labs from last 24 hours 02/15/25 02/15/25 02/14/25 06:00 04:29 23:52 WBC 5.1 RBC 4.31 Hgb 12.3 Hct 38.0 MCV 88.2 MCH 28.5 MCHC 32.4 RDW 13.1 Plt Count 256 MPV 10.2 Immature Gran % (Auto) 0.2 Neut % (Auto) 44.0 L Lymph % (Auto) 41.3 [place] % (Auto) 12.5 H Eos % (Auto) 1.6 Baso % (Auto) 0.4 Lymph # (Auto) 2.09 [place] # (Auto) 0.6 Eos # (Auto) 0.1 Baso # (Auto) 0.0 Abs Immat Gran (auto) 0.01 Absolute Neuts (auto) 2.2 Absolute Nucleated RBC 0.000 Nucleated RBC % 0.0 POC Capillary Glucose 97 91 Discharge Plan Discharge Attending physician on discharge: Jimbo Arzola Consulting providers: Kailyn Chapman; Manas Wiggins; Lindy Berger Discharging Clinician: Lindy Berger Anticipated Discharge Date/Time: 02/15/25 14:37 Patient Disposition: Home Activity: as tolerated Diet: regular Discharge Instructions: Take all medications as prescribed. Finish antibiotics if prescribed, even if you are feeling better. Follow-up with ENT in 4 weeks to discuss tonsil removal surgery. Follow-up with your primary care provider in one week. Return to the emergency department if you develop chest pain, shortness of breath, persistent fever >100.4, confusion, loss of consciousness, inability to swallow, fevers, severe throat pain, bleeding. Patient Instructions: Antibiotic Form Patient Language: Faroese Stand Alone Forms: General Discharge Information Follow-up/Referrals: Manas Wiggins MD [Physician, Ear, Nose, Throat] - Call for Appointment Referral Note: call for appointment in 4 weeks Kailyn Chapman DO [Physician, Family Practice] - Call for Appointment Referral Note: follow-up in 1 week for hospital follow-up appointment Discharge Medications: New amoxicillin-pot clavulanate 400-57 mg/5 mL suspension for reconstitution 12.5 ml PO Q12H 10 Days Qty: 250 0RF Discontinued amoxicillin-pot clavulanate 875-125 mg tablet 1 tablet PO Q12H Qty: 20 0RF Date of admission: 02/13/25 14:37 Primary Care Provider: [facility]IC[facility] Admitting Provider: Margaux Fuentes Attending physician on admission: Margaux Fuentes Condition: Stable
--- NOTE | 2025-02-19 09:39 | PC.NURSE ---
Throat cx shows no growth. Results to Dr. Wiggins.
--- NOTE | 2025-02-22 07:56 | PC.NURSE ---
Blood cx show no growth.
== END 2025-02-15 17:11 | disposition home or self-care (01) ==
LOC: ANHED 10:09 → ANH3MEDSUR 15:58
PROVIDERS: Physician Assistant; Admitting Provider General Practice; Emergency Provider Emergency Medicine; Visit Provider Internal Medicine
DX: J36 Peritonsillar abscess (principal); R59.0 Localized enlarged lymph nodes; Z20.822 Contact with and (suspected) exposure to COVID-19
CPT/HCPCS: 42700; 36415; 70491; 80053; 81025; 82948; 83605; 85025; 86308; 87070; 87075; 87637; 87651; 96365; 96366; 96375; 99285; G0378; G0379; J0295; J1100; J7121; Q9967